=== PATIENT | male | born 1970 | race Caucasian/White ===

== ENCOUNTER 2018-07-16 13:58 | Inpatient (IN) | payer MEDICAID ==
[~2018-07-16] VITALS: Ht 175.3 cm; Wt 127.9 kg
[2018-07-16 14:06] VITALS: BP_SYST 129
[2018-07-16] MEDS ORDERED: DIAZEPAM 10 MG/2 ML DISP.SYRIN IVP ONE (15:15)
[2018-07-16] MEDS: NORMAL SALINE 5 ML DISP.SYRIN IVF SCH (15:44)
[2018-07-16] MEDS ORDERED: LORazepam 2 MG/ML VIAL (FOR ER USE) IVP ONE ×2 (15:45→17:00)
[2018-07-16 15:52] LABS: CALCIUM 9.3 mg/dL (8.4-11.0); CREATININE 1.03 mg/dL (0.55-1.30); POTASSIUM 3.8 mmol/L (3.5-5.1)
[2018-07-16 15:59] LABS: HEMOGLOBIN 15.5 g/dL (14.0-18.0); MEAN CORPUSCULAR HEMOGLOBIN 34 pg (27-31); MEAN CORPUSCULAR HGB CONC 35 % (32-36); MEAN CORPUSCULAR VOLUME 97 fL (79.0-98.0); RED BLOOD CELL COUNT(AUTO) 4.62 MIL/uL (4.2-6.2); RED CELL DISTRIBUTION WIDTH 14.1 % (9.0-15.0); TOTAL BILIRUBIN 0.8 mg/dL (0.0-1.0); WHITE BLOOD COUNT (AUTO) 7.5 K/uL (4.8-10.8)
[2018-07-16 16:00] LABS: BASOPHILS % (AUTO) 0.6 % (0.0-2.0); EOSINOPHILS % (AUTO) 0.2 % (0.0-4.0); LYMPHOCYTES # (AUTO) 0.6 K/uL (1.0-5.5); LYMPHOCYTES % (AUTO) 7.9 % (20.5-51.5); MONOCYTES # (AUTO) 0.9 K/uL (0.0-1.0); MONOCYTES % (AUTO) 12.1 % (1.7-9.3); NEUTROPHILS # (AUTO) 5.9 K/uL (1.8-7.7); NEUTROPHILS % (AUTO) 79.2 % (40.0-70.0); PLATELET COUNT (AUTO) 188 K/uL (130-430)
[2018-07-16] MEDS ORDERED: BUSP10TA3 PO (16:19)
[2018-07-16] MEDS ORDERED: QUET50TA14 PO (16:19)
[2018-07-16] MEDS ORDERED: FOLIC ACID 1 MG, THIAMINE HCL 100 MG, MAGNESIUM SULFATE 1 GM, MVI 10 ML in NACL 0.9% 1,... IV ONE (17:00)
[2018-07-16] MEDS ORDERED: MAGNESIUM SULFATE 1 GM/2 ML VIAL ONE (17:07)
[2018-07-16] MEDS ORDERED: MVI 10 ML VIAL IV ONE (17:07)
[2018-07-16] MEDS ORDERED: FOLIC ACID 5 MG/ML VIAL IV ONE (17:07)
[2018-07-16] MEDS ORDERED: THIAMINE HCL 100 MG/ML VIAL ONE (17:07)
[2018-07-16] MEDS ORDERED: DOCUSATE SODIUM 100 MG CAPSULE PO PRN (17:45)
[2018-07-16] MEDS ORDERED: POTASSIUM CHLORIDE 20 MEQ TAB.PRT.SR PO PRN (17:45)
[2018-07-16] MEDS ORDERED: MUPIROCIN 2% TOPICAL OINTMENT 22 GM NS PRN (17:45)
[2018-07-16] MEDS ORDERED: ACETAMINOPHEN 325 MG TABLET PO PRN (17:45)
[2018-07-16] MEDS ORDERED: ZOLPIDEM TARTRATE 5 MG TABLET PO PRN (17:45)
[2018-07-16] MEDS ORDERED: MORPHINE 4 MG/ML INJ. SYRINGE IVP PRN (17:45)
[2018-07-16] MEDS ORDERED: ONDANSETRON HCL 4 MG/2 ML VIAL IVP PRN (17:45)
[2018-07-16] MEDS ORDERED: MAGNESIUM SULFATE 50 ML IV PRN (17:45)
[2018-07-16 17:58] VITALS: BP_SYST 148
[2018-07-16 19:45] VITALS: BP_SYST 154
[2018-07-16] MEDS: LORazepam 2 MG/ML VIAL IVP PRN (20:02)
[2018-07-16] MEDS ORDERED: METOPROLOL TARTRATE 50 MG TABLET PO SCH ×2 (21:00→23:00)
[2018-07-16] MEDS ORDERED: NON-FORMULARY MEDICATION (Quetiapine Fumarate (Seroquel Xr) 50 MG) PO SCH (21:00)
[2018-07-16] MEDS: NACL 0.9% 1,000 ML IV SCH (21:03)
[2018-07-16] MEDS: chlordiazePOXIDE HCL 25 MG CAPSULE PO SCH (22:47)
[2018-07-16] MEDS: cloNIDine HCL 0.1 MG TABLET PO PRN (22:49)
[2018-07-17] MEDS: LORazepam 2 MG/ML VIAL IVP PRN (02:50)
[2018-07-17 02:55] VITALS: BP_SYST 151
[2018-07-17 05:00] VITALS: BP_SYST 156
[2018-07-17] MEDS: NACL 0.9% 1,000 ML IV SCH ×5 (05:21→20:48)
[2018-07-17] MEDS: NORMAL SALINE 5 ML DISP.SYRIN IVF SCH ×3 (05:25→22:00)
[2018-07-17] MEDS: chlordiazePOXIDE HCL 25 MG CAPSULE PO SCH ×4 (05:26→17:44)
[2018-07-17 07:30] VITALS: BP_SYST 145
[2018-07-17] MEDS ORDERED: LORazepam 2 MG/ML VIAL IVP ONE (08:00)
[2018-07-17 08:04] LABS: BASOPHILS % (AUTO) 0.9 % (0.0-2.0); EOSINOPHILS # (AUTO) 0.1 K/uL (0.0-0.4); EOSINOPHILS % (AUTO) 1.2 % (0.0-4.0); HEMATOCRIT 40.7 % (36-54); HEMOGLOBIN 14.2 g/dL (14.0-18.0); LYMPHOCYTES # (AUTO) 0.7 K/uL (1.0-5.5); LYMPHOCYTES % (AUTO) 12.7 % (20.5-51.5); MEAN CORPUSCULAR HEMOGLOBIN 34 pg (27-31); MEAN CORPUSCULAR HGB CONC 35 % (32-36); MEAN CORPUSCULAR VOLUME 97 fL (79.0-98.0); MONOCYTES # (AUTO) 0.8 K/uL (0.0-1.0); MONOCYTES % (AUTO) 14.2 % (1.7-9.3); NEUTROPHILS # (AUTO) 3.9 K/uL (1.8-7.7); PLATELET COUNT (AUTO) 158 K/uL (130-430); RED BLOOD CELL COUNT(AUTO) 4.19 MIL/uL (4.2-6.2); RED CELL DISTRIBUTION WIDTH 13.9 % (9.0-15.0); WHITE BLOOD COUNT (AUTO) 5.4 K/uL (4.8-10.8)
[2018-07-17] MEDS: METOPROLOL TARTRATE 50 MG TABLET PO SCH ×2 (08:19→17:47)
[2018-07-17] MEDS: cloNIDine HCL 0.1 MG TABLET PO PRN ×3 (08:19→20:51)
[2018-07-17 08:26] LABS: CALCIUM 8.6 mg/dL (8.4-11.0); CREATININE 0.79 mg/dL (0.55-1.30); POTASSIUM 3.4 mmol/L (3.5-5.1)
[2018-07-17 12:00] VITALS: BP_SYST 155
[2018-07-17 16:00] VITALS: BP_SYST 145
[2018-07-17 18:09] LABS: BARBITURATE, URINE NEGATIVE (NEG <=200); BENZODIAZEPINE, URINE POSITIVE (NEG <=150); CANNABINOID, URINE NEGATIVE (NEG <=50); COCAINE, URINE NEGATIVE (NEG <=150); METHAMPHETAMINES SCREEN,URINE NEGATIVE (NEG <=500); OPIATE, URINE POSITIVE (NEG <=100); PHENCYCLIDINE SCREEN,URINE NEGATIVE (NEG <=25); URINE AMPHETAMINE NEGATIVE (NEG <=500); URINE METHADONE NEGATIVE (NEG <=200); URINE OXYCODONE SCREEN NEGATIVE (NEG <=100)
[2018-07-17 18:10] LABS: UR TRICYCLIC ANTIDEPRESSANTS NEGATIVE (NEG <=300); URINE PROPOXYPHENE SCREEN NEGATIVE (NEG <=300)
[2018-07-17 19:55] VITALS: BP_SYST 150
[2018-07-17] MEDS ORDERED: QUEtiapine FUMARATE 25 MG TABLET PO SCH (21:00)
[2018-07-18] MEDS: chlordiazePOXIDE HCL 25 MG CAPSULE PO SCH ×3 (00:19→10:57)
[2018-07-18] MEDS: LORazepam 2 MG/ML VIAL IVP PRN (02:00)
[2018-07-18 02:25] VITALS: BP_SYST 128
[2018-07-18] MEDS: NACL 0.9% 1,000 ML IV SCH (03:58)
[2018-07-18] MEDS: NORMAL SALINE 5 ML DISP.SYRIN IVF SCH (06:00)
[2018-07-18 06:43] LABS: BASOPHILS % (AUTO) 0.8 % (0.0-2.0); EOSINOPHILS # (AUTO) 0.1 K/uL (0.0-0.4); EOSINOPHILS % (AUTO) 2.9 % (0.0-4.0); HEMOGLOBIN 13.6 g/dL (14.0-18.0); LYMPHOCYTES # (AUTO) 0.9 K/uL (1.0-5.5); LYMPHOCYTES % (AUTO) 21.5 % (20.5-51.5); MEAN CORPUSCULAR HEMOGLOBIN 34 pg (27-31); MEAN CORPUSCULAR HGB CONC 34 % (32-36); MEAN CORPUSCULAR VOLUME 99 fL (79.0-98.0); MONOCYTES # (AUTO) 0.6 K/uL (0.0-1.0); MONOCYTES % (AUTO) 13.7 % (1.7-9.3); NEUTROPHILS # (AUTO) 2.6 K/uL (1.8-7.7); NEUTROPHILS % (AUTO) 61.1 % (40.0-70.0); PLATELET COUNT (AUTO) 137 K/uL (130-430); RED BLOOD CELL COUNT(AUTO) 4.04 MIL/uL (4.2-6.2); WHITE BLOOD COUNT (AUTO) 4.3 K/uL (4.8-10.8)
[2018-07-18 06:47] LABS: CALCIUM 8.6 mg/dL (8.4-11.0); CREATININE 0.83 mg/dL (0.55-1.30); POTASSIUM 3.5 mmol/L (3.5-5.1)
[2018-07-18] MEDS: METOPROLOL TARTRATE 50 MG TABLET PO SCH (08:00)
[2018-07-18 09:22] VITALS: BP_SYST 119
[2018-07-18 09:27] VITALS: BP_SYST 119
[2018-07-18 12:29] VITALS: BP_SYST 134
== END 2018-07-18 11:10 | DRG 426 ==
LOC: SED 13:58 → STU 16:35
PROVIDERS: ADMIT General Practice; ATTEND General Practice
DX: E87.1 Hypo-osmolality and hyponatremia (principal); F10.231 Alcohol dependence with withdrawal delirium; F32.9 Major depressive disorder, single episode, unspecified; F41.9 Anxiety disorder, unspecified; I10 Essential (primary) hypertension
CPT/HCPCS: 36415; 80048; 80053; 80307; 83036; 83735-TC; 85025; 96365; 96375; 99285; G0378; G0482; J2060; J2270; J3411; J3475; J3490; J7030

== ENCOUNTER 2023-09-15 14:45 | Emergency (ER) | payer MEDICAID ==
[~2023-09-15] VITALS: Ht 175.3 cm; Wt 113.4 kg
[~2023-09-15 14:45] MED LIST: BUSP10TA3 PO; QUET50TA15 PO
[2023-09-15 15:12] VITALS: BP_SYST 111; PULSE 90; RESP 20; TEMP 98.8; O2SAT 97
[2023-09-15] MEDS ORDERED: CEPH-548 PO (17:59)
[2023-09-15] MEDS ORDERED: CLOT30CR37 TP (18:00)
[2023-09-15] MEDS: KETOROLAC TROMETHAMINE 30 MG VIAL IM ONE (19:02)
[2023-09-15] MEDS ORDERED: BACITRACIN 1 GM OINT TP ONE (19:07)
[2023-09-15 19:11] VITALS: BP_SYST 111; PULSE 90; RESP 20; TEMP 98.8; O2SAT 97
== END 2023-09-15 19:12 | disposition home or self-care (01) ==
LOC: SED 14:45
DX: S91.205A Unspecified open wound of left lesser toe(s) with damage to nail, initial encounter (principal); B35.3 Tinea pedis; Z79.899 Other long term (current) drug therapy; Z79.2 Long term (current) use of antibiotics; W26.8XXA Contact with other sharp object(s), not elsewhere classified, initial encounter; Y93.89 Activity, other specified; Y92.89 Other specified places as the place of occurrence of the external cause; Y99.8 Other external cause status
CPT/HCPCS: 99283; 73630; 96372; J1885

== ENCOUNTER 2023-09-18 09:06 | Emergency (ER) | payer MEDICAID ==
[~2023-09-18 09:06] MED LIST changes: +CEPH-548 PO; +CLOT30CR37 TP
[2023-09-18 09:15] VITALS: BP_SYST 134; PULSE 119; RESP 22; TEMP 98.3; O2SAT 94
[2023-09-18 10:14] LABS: BASOPHILS # (AUTO) 0.1 K/uL (0.0-0.2); BASOPHILS % (AUTO) 0.8 % (0.0-2.0); EOSINOPHILS % (AUTO) 0.3 % (0.0-4.0); HEMATOCRIT 37.6 % (36-54); HEMOGLOBIN 13.4 g/dL (14.0-18.0); LYMPHOCYTES # (AUTO) 0.8 K/uL (1.0-5.5); LYMPHOCYTES % (AUTO) 8.3 % (20.5-51.5); MEAN CORPUSCULAR HEMOGLOBIN 35 pg (27-31); MEAN CORPUSCULAR HGB CONC 36 % (32-36); MEAN CORPUSCULAR VOLUME 100 fL (79.0-98.0); MONOCYTES # (AUTO) 0.8 K/uL (0.0-1.0); MONOCYTES % (AUTO) 8.5 % (1.7-9.3); NEUTROPHILS # (AUTO) 8.2 K/uL (1.8-7.7); NEUTROPHILS % (AUTO) 82.1 % (40.0-70.0); PLATELET COUNT (AUTO) 242 K/uL (130-430); RED BLOOD CELL COUNT(AUTO) 3.77 MIL/uL (4.2-6.2); RED CELL DISTRIBUTION WIDTH 13.8 % (9.0-15.0)
[2023-09-18 10:23] LABS: INR 1.1 (0.80-1.20); PROTHROMBIN TIME 11.3 SECS (9.5-12.5)
[2023-09-18 10:56] LABS: CALCIUM 9.2 mg/dL (8.4-11.0); CREATININE 1.01 mg/dL (0.55-1.30); POTASSIUM 3.8 mmol/L (3.5-5.1)
[2023-09-18] MEDS ORDERED: CLIN-22 PO (11:11)
[2023-09-18] MEDS ORDERED: BACITRACIN 1 GM OINT TP ONE (11:31)
== END 2023-09-18 11:26 | disposition home or self-care (01) ==
LOC: SED 09:06
DX: L03.032 Cellulitis of left toe (principal); Z79.899 Other long term (current) drug therapy; Z79.2 Long term (current) use of antibiotics
CPT/HCPCS: 36415; 80048; 82948; 83605; 85025; 85610; 85730; 99284